=== PATIENT | male | born 1955 | race African-American/Black ===

== ENCOUNTER 2024-09-14 18:10 | Emergency (ER) | payer MEDICARE, MEDICAID ==
[~2024-09-14] VITALS: Ht 182.9 cm; Wt 88.0 kg
[2024-09-14 18:14] VITALS: BP 163/83; PULSE 104; RESP 16; TEMP 36.6; O2SAT 97
[2024-09-14] MEDS: BACITRACIN ZINC OINT UDPKT TOP ONE (19:15)
[2024-09-14] MEDS: LIDOCAINE HCL/EPINEPHRINE 1%-EPI 1:100,000 20ML VIAL INFIL ONE (19:15)
[2024-09-14] MEDS: TETANUS, DIPHTHERIA, PERTUSSIS VAC/PF 0.5ML (>10YR OLD) IM ONE (19:21)
== END 2024-09-14 20:38 | disposition home or self-care (01) ==
LOC: ER 18:10
DX: S00.81XA Abrasion of other part of head, initial encounter (principal); I10 Essential (primary) hypertension; E78.00 Pure hypercholesterolemia, unspecified; R51.9 Headache, unspecified; Y04.0XXA Assault by unarmed brawl or fight, initial encounter; Y93.89 Activity, other specified; Y92.89 Other specified places as the place of occurrence of the external cause; Y99.8 Other external cause status
CPT/HCPCS: 99285; 70450; 72125; 90715; 90471; J2004